=== PATIENT | female | born 1965 | race Caucasian/White ===

== ENCOUNTER 2017-04-27 09:26 | Inpatient (IN) | payer BC, OTHER ==
[2017-04-13 12:05] VITALS: BMI 22.0
--- NOTE | 2017-04-13 12:47 | PAT Medication Instructions ---
Service Date Apr 13, 2017. Current Home Medication List Acetamin/Butalbital/Caffeine (Fioricet), 1-2 TAB PO BID PRN for RN Amphetamine-Dextroamphetamine 30MG (Adderall 30MG), 30 MG PO QAM Hydrocodone/Acetaminophen 5MG/325MG ([place] 5MG/325MG), 1 TABLET PO Q4H PRN for N Magnesium Oxide (Mag-Ox), 400 MG PO NOON Multivitamin (Multivitamin), 1 TAB PO QAM Pregabalin (Lyrica), 100 MG PO HS Varenicline (Chantix), 1 MG PO DIRECTED [Selenium], 1 TAB PO QAM Medication Instructions For Your Scheduled Surgery - Hold the following medications 2 weeks prior to surgery: [Selenium], 1 TAB PO QAM - Hold the following medications the morning of surgery: Magnesium Oxide (Mag-Ox), 400 MG PO NOON Multivitamin (Multivitamin), 1 TAB PO QAM Amphetamine-Dextroamphetamine 30MG (Adderall 30MG), 30 MG PO QAM Varenicline (Chantix), 1 MG PO DIRECTED - Take the following medications the morning of surgery with a sip of water: Hydrocodone/Acetaminophen 5MG/325MG ([place] 5MG/325MG), 1 TABLET PO Q4H PRN (if needed, can be taken up to four hours before surgery) Acetamin/Butalbital/Caffeine (Fioricet), 1-2 TAB PO BID PRN for RN (if needed, can be taken up to four hours before surgery) - Take the following medications as scheduled the night before surgery: Pregabalin (Lyrica), 100 MG PO HS Hydrocodone/Acetaminophen 5MG/325MG ([place] 5MG/325MG), 1 TABLET PO Q4H PRN Acetamin/Butalbital/Caffeine (Fioricet), 1-2 TAB PO BID PRN for RN If you have any questions please call us at [phone] or [phone] or [phone]
[2017-04-13 13:28] LABS: BASO % 0.6 %; BASO ABS # 0.03 K/uL (0-0.2); COMPLETE YES; EOS % 0.8 %; HEMATOCRIT 44.6 % (37-47); IG% 0.2 %; LYMPH % 27.5 %; LYMPH ABS # 1.41 K/uL (1.2-3.4); MEAN CELL VOLUME 86.3 fL (80-100); MEAN CORPUSCULAR HEMOGLOBIN 30.2 pg (25-34); MEAN PLATELET VOLUME 12.4 fL (7.4-10.4); MONO % 9.4 %; NEUT % 61.5 %; PLATELET COUNT 185 K/uL (130-400); RED BLOOD COUNT 5.17 M/uL (4.2-5.4); WHITE BLOOD COUNT 5.12 K/uL (4.8-10.8)
[2017-04-13 13:37] LABS: URINE APPEARANCE CLEAR (CLEAR); URINE BILIRUBIN NEG (NEG); URINE COLOR YELLOW; URINE NITRITE NEG (NEG); URINE PH 6.5 (4.5-7.5); URINE SPECIFIC GRAVITY 1.021 (1.000-1.030); UROBILINOGEN NEG (NEG); ZZUR CULT IF INDIC CLEAN CATCH NO
[2017-04-13 13:49] LABS: MANUAL MICROSCOPIC REQUIRED? NO; REVIEW REQ? NO
--- NOTE | 2017-04-13 13:52 | DIAGNOSTIC IMAGING REPORT ---
CHEST PREADMISSION(PA/LAT) CLINICAL HISTORY: Preoperative chest COMPARISON STUDY: No previous studies for comparison. FINDINGS: The cardiac and mediastinal contours are normal. There is no evidence of focal pulmonary consolidation. There is no evidence of failure. No pleural effusions are visualized.[ There are postsurgical changes of the cervical spine. IMPRESSION: No active disease in the chest. Electronically signed by: Bong Thakur M.D. 04/13/2017 1:50 PM Dictated Date/Time: 04/13/2017 1:50 PM
[2017-04-13 14:00] LABS: CALCIUM 9.2 mg/dl (8.5-10.1); CREATININE 0.76 mg/dl (0.60-1.20); POTASSIUM 4.8 mmol/L (3.5-5.1)
[2017-04-27] VITALS (8 sets, daily range): BP systolic 84–131; BP diastolic 58–83; PULSE 53–70; TEMP 34.7–37; O2SAT 96–100; Ht 175.3 cm; Wt 68.8 kg
[~2017-04-27] VITALS: Ht 175.3 cm; Wt 68.8 kg
[~2017-04-27 09:26] MED LIST: AMPH30TA2 PO; CEFAZOLIN 1000MG IV PUSH 5 ML IV SCH; CHN/1 PO; FRCT/ PO; HYDR-5688 PO; LACTATED RINGER'S 1000ML 1,000 ML IV SCH; MAGN400T6 PO; MULT-506 PO; PREG100C PO; SELENIUM PO
[2017-04-27] MEDS ORDERED: HYDROmorphone INJ 1 MG/ML SYR IV PRN (10:00)
[2017-04-27] MEDS ORDERED: FENTANYL CITRATE INJ 50 MCG/1 ML 2 ML VIAL IV PRN (10:00)
[2017-04-27] MEDS ORDERED: ATROPINE SULFATE 0.1 MG/ML 5ML SYR IV PRN (10:00)
[2017-04-27] MEDS ORDERED: ONDANSETRON INJ 2 MG/ML 2 ML VIAL IV PRN ×2 (10:00→13:00)
[2017-04-27] MEDS ORDERED: EpHEDrine SULFATE INJ 50 MG/ML AMP IV PRN (10:00)
[2017-04-27] MEDS ORDERED: FENTANYL CITRATE INJ 50 MCG/1 ML 2 ML VIAL ONE ×3 (10:38→13:07)
[2017-04-27] MEDS ORDERED: MIDAZOLAM HCL 1 MG/ML 2ML VIAL ONE (10:38)
--- NOTE | 2017-04-27 10:52 | History & Physical Bridge Note ---
H&P Re-Evaluation Bridge Note: I have examined the patient, reviewed the History & Physical and in the interval since the performance of the History & Physical I have noted the following changes of clinical significance: No changes noted
--- NOTE | 2017-04-27 10:52 | History and Physical ---
History & Physical Date Apr 27, 2017. Chief Complaint Back and leg pain History of Present Illness The patient is a 51 year old female with complaints of back and leg pain Past Medical/Surgical History Medical Problems: (1) Cervical stenosis of spinal canal Additional History Hepatic Disease: No Endocrine Disorder: No Kidney Disease: No Hypertension: No Heart Disease: No Bleeding Tendencies: No Infectious Diseases: No Allergies Coded Allergies: BEE STING (Verified Allergy, Severe, ANAPHYLAXIS, 04/27/17) NO KNOWN DRUG ALLERGIES (Verified Allergy, Unknown, NKDA, 04/27/17) Home Medications Scheduled Amphetamine-Dextroamphetamine 30MG (Adderall 30MG), 30 MG PO QAM Magnesium Oxide (Mag-Ox), 400 MG PO NOON Multivitamin (Multivitamin), 1 TAB PO QAM Pregabalin (Lyrica), 100 MG PO HS Varenicline (Chantix), 1 MG PO DIRECTED [Selenium], 1 TAB PO QAM Scheduled PRN Acetamin/Butalbital/Caffeine (Fioricet), 1-2 TAB PO BID PRN for RN Hydrocodone/Acetaminophen 5MG/325MG ([place] 5MG/325MG), 1 TABLET PO Q4H PRN for N Physical Examination Skin: warm/dry, no rash Eyes: normal inspection, EOMI, sclerae normal ENT: normal ENT inspection, pharynx normal Head: normocephalic, atraumatic Neck: supple, no adenopathy, trachea midline Respiratory/Chest: lungs clear, normal breath sounds, no respiratory distress Cardiovascular: regular rate, rhythm, no edema, no murmur Abdomen / GI: normal bowel sounds, non tender Back: normal inspection Extremities: normal inspection, normal range of motion Neurologic/Psych: no motor/sensory deficits, alert, normal reflexes, oriented x 3 Diagnosis Lumbar spinal stenosis with herniated nucleus pulposus Plan of Treatment Lumbar decompression and fusion L5-S1
[2017-04-27] MEDS ORDERED: BUPIVACAINE/EPINEPHRINE 0.5% MPF 1:200,000 30 ML VIAL ONE (11:13)
[2017-04-27] MEDS ORDERED: BACITRACIN 50000 UNIT VIAL ONE (11:14)
[2017-04-27] MEDS ORDERED: HYDROmorphone INJ 2 MG/ML SYR/VIAL ONE ×2 (11:50→12:59)
[2017-04-27] MEDS ORDERED: ONDANSETRON INJ 2 MG/ML 2 ML VIAL ONE ×2 (12:13→13:00)
[2017-04-27] MEDS ORDERED: DEXAMETHASONE SOD INJ 4 MG/ML VIAL ONE (12:13)
[2017-04-27] MEDS ORDERED: PROPOFOL IV EMULSION 10 MG/ML 20 ML VIAL IV ONE (12:13)
[2017-04-27] MEDS ORDERED: LIDOCAINE HCL 2% 2 ML VIAL (20MG/ML) ONE (12:13)
[2017-04-27] MEDS ORDERED: FLOSEAL HEMOSTATIC MATRIX 10ML TOP ONE (12:49)
[2017-04-27] MEDS ORDERED: SODIUM CHLORIDE 0.9% 1000ML 1,000 ML IV SCH (12:57)
[2017-04-27] MEDS ORDERED: NALOXONE HCL 0.4 MG/1 ML VIAL/CARP IV PRN ×2 (13:00)
[2017-04-27] MEDS ORDERED: ACETAMINOPHEN IV 100 ML IV PRN (13:00)
[2017-04-27] MEDS ORDERED: DO NOT ADMINISTER FLU VACCINE PRN ×3 (13:00)
[2017-04-27] MEDS ORDERED: GLYCOPYRROLATE INJ 0.2 MG/ML VIAL ONE (13:00)
[2017-04-27] MEDS ORDERED: METOCLOPRAMIDE HCL INJ 5 MG/ML 2 ML VIAL IV PRN (13:00)
[2017-04-27] MEDS ORDERED: BISACODYL 10 MG SUPP PR PRN (13:00)
[2017-04-27] MEDS ORDERED: PROMETHAZINE HCL INJ 12.5 MG in SODIUM CHLORIDE 0.9% 50ML 50 ML IV PRN (13:00)
[2017-04-27] MEDS ORDERED: LORAZEPAM INJ 0.5 MG in SYRINGE 0.75 ML IV PRN (13:00)
[2017-04-27] MEDS ORDERED: BUTALBITAL/ACETAMIN/CAFFEINE TAB PO PRN (13:00)
[2017-04-27] MEDS ORDERED: PHENYLEPHRINE 100MCG/ML 5ML SYR ONE (13:00)
[2017-04-27] MEDS ORDERED: MAGNESIUM HYDROXIDE SUSP 30 ML UDC PO PRN (13:00)
[2017-04-27] MEDS ORDERED: ALUMINUM/MAGNESIUM SUSP 30 ML UDC PO PRN (13:00)
[2017-04-27] MEDS ORDERED: FAMOTIDINE 20 MG TAB PO PRN (13:00)
[2017-04-27] MEDS ORDERED: hydrOXYzine HCL 25 MG TAB PO PRN (13:00)
[2017-04-27] MEDS ORDERED: ACETAMINOPHEN 500 MG TAB PO PRN (13:00)
[2017-04-27] MEDS ORDERED: NEOSTIGMINE METHYLSULFATE 1 MG/ML 10ML VIAL ONE (13:00)
[2017-04-27] MEDS ORDERED: DO NOT ADMINISTER PNEUMOCOCCAL VACCINE PRN ×2 (13:00)
[2017-04-27] MEDS ORDERED: SOD PHOSPHATE/SOD BIPHOSPHATE ENEMA 132 ML BTL PR PRN (13:00)
--- NOTE | 2017-04-27 13:04 | [facility] Operative Report ---
Operative Report Operative Date Apr 27, 2017. Pre-Operative Diagnosis Lumbar Spinal Stenosis with herniated nucleus pulposus Post-Operative Diagnosis same Procedure(s) Performed #1 lumbar decompression medial facetectomy foraminotomies L5-S1. #2 posterior spinal fusion L5-S1. #3 placement posterior segmental instrumentation L5-S1. #4 interbody fusion L5-S1. #5 placement peek cage 12 x 22 mm L5-S1. #6 placement of locally harvested morcellized autograft posterior gutters. #7 placement of ostial amp bone graft in the interbody space and posterior lateral gutters. Surgeon Dr. Tony Oliver [employer] Consultant Surgeon(s) Edda Montaño PA-C Findings Herniated pulposus spinal stenosis Specimens none per surgeon Description of Procedure Patient was met with preoperatively case discussed all questions addressed. After informed consent was obtained patient was taken operative suite underwent intubation placed in prone position the Russell table top Wilberto frame. All bony prominences well-padded eyes inspected to ensure no external pressure placed upon them. This point lumbar spines prepped and draped nostril fashion. Sharp dissection with the assistance of Bovie cautery was performed onto an exposing the lamina and transverse processes of L5 and sacral alar bilaterally. From a caudal to cephalad fashion complete laminectomy of L5 was performed including medial facet was foraminotomies addressing lateral recess stenosis foraminal disease and herniated was pulposus L5-S1 the right. After complete decompression pedicle screws are placed in L5-S1 levels bilaterally with assistance of fluoroscopy the purposes blake placed. Through a transforaminal port and right a complete discectomy was performed and plate created to subcortical bleeding bone and a 12 x 22 Romano peek cage filled with ostial amp bone graft tapped in position. Brought to then compressed locked and final position bilaterally. Transverse processes of L5 and sacral alar burred to subcortical bleeding bone. Remaining ostial amp local harvested morcellized autograft was placed the posterior gutters. 15 round ESTEBAN drain inserted. Incision was then closed with 1 Vicryl fascia 2-0 Vicryl subcutaneous C 4 Monocryl for final skin closure Steri-Strips sterile dressings placed. Patient we can take PACU stable condition. Please note Edda Ching was present at the entire procedure involved in patient positioning complex portions of the surgery and final skin closure. I attest to the content of the Intraoperative Record and any orders documented therein. Any exceptions are noted below.
[2017-04-27] MEDS ORDERED: KETOROLAC TROMETHAMINE 30 MG/ML VIAL ONE (13:24)
--- NOTE | 2017-04-27 13:24 | DIAGNOSTIC IMAGING REPORT ---
LUMBAR SPINE 2 OR 3 VIEW HISTORY: 51 years-old Female L5-S1 DECOMPRESSION/FUSION status post L5-S1 decompression with fusion COMPARISON: None available TECHNIQUE: 2 views of the lumbar spine were obtained utilizing 15.5 seconds fluoroscopy time FINDINGS: Postoperative changes compatible with posterior decompression with interbody blake and screw fusion and discectomy at L5-S1. Alignment is satisfactory. Patent postsurgical soft tissue swelling and deep tissue air noted. IMPRESSION: Fluoroscopic assistance as above. Please see operative report for further details. The above report was generated using voice recognition software. It may contain grammatical, syntax or spelling errors. Electronically signed by: Ryder Anne M.D. 04/27/2017 1:22 PM Dictated Date/Time: 04/27/2017 1:21 PM
[2017-04-27] MEDS ORDERED: HYDROmorphone HCL 0.5MG/ML 50 ML CASSETTE ONE (13:32)
--- NOTE | 2017-04-27 14:02 | Anesthesiology Progress Note ---
Anesthesia Post Op Note Date & Time Apr 27, 2017 at 14:02 Vital Signs Pain Intensity: 0 Vital Signs Past 12 Hours Date Time Temp Pulse Resp B/P (MAP) Pulse Ox O2 Delivery O2 Flow Rate FiO2 04/27/17 13:57 60 22 100 04/27/17 13:57 60 22 04/27/17 13:56 116/80 04/27/17 13:52 59 15 04/27/17 13:52 60 15 113/80 100 04/27/17 13:47 61 21 110/78 100 04/27/17 13:47 61 21 04/27/17 13:45 61 21 110/78 100 Oxymask 10 04/27/17 13:42 77 21 107/64 95 04/27/17 13:42 67 21 04/27/17 13:37 67 28 109/77 100 04/27/17 13:37 67 28 04/27/17 13:35 66 25 109/77 100 Oxymask 10 04/27/17 13:32 75 14 04/27/17 13:32 75 14 100 04/27/17 13:31 107/70 04/27/17 13:27 72 17 100 04/27/17 13:27 73 17 04/27/17 13:26 113/73 04/27/17 13:25 73 16 04/27/17 13:25 76 20 107/70 100 Oxymask 10 04/27/17 13:25 74 16 100 04/27/17 13:21 109/73 04/27/17 13:20 81 17 100 04/27/17 13:20 81 17 04/27/17 13:17 103/71 04/27/17 13:15 36.2 65 14 103/71 96 Oxymask 10 04/27/17 13:15 79 14 99 04/27/17 13:15 79 14 04/27/17 10:21 36.8 63 18 131/83 100 Room Air Notes Mental Status: alert / awake / arousable, participated in evaluation Pt Amnestic to Procedure: Yes Nausea / Vomiting: adequately controlled Pain: adequately controlled Airway Patency, RR, SpO2: stable & adequate BP & HR: stable & adequate Hydration State: stable & adequate Anesthetic Complications: no major complications apparent
[2017-04-27] MEDS: LACTATED RINGER'S 1000ML 1,000 ML IV SCH ×2 (15:28→20:49)
[2017-04-27] MEDS ORDERED: RXC5 PO (15:53)
--- NOTE | 2017-04-27 15:53 | Discharge Instructions ---
Discharge Instructions Date of Service Apr 27, 2017. Admission Reason for Admission: Spinal Stenosis Discharge Discharge Diagnosis / Problem: lumbar stenosis Discharge Goals Goal(s): Improve function Activity Recommendations Activity Limitations: per Instructions/Follow-up section . Instructions / Follow-Up Instructions / Follow-Up ACTIVITY RECOMMENDATIONS: SELF CARE INSTRUCTIONS AFTER THORACIC/LUMBAR FUSIONS 1. You may walk to your tolerance. It is good exercise for your legs and back. Expect some back and intermittent leg aches and pains. 2. You may perform "counter-top" level activities (make a sandwich, lesly with a project, etc.). 3. No bending or lifting of more than 10 pounds or back twisting of any nature (roll like a log when turning in bed). 4. You may ride in a car for 20-30 minutes at a time. No driving until after your first visit with your doctor. 5. Frequent changes of position and restricting sitting to 30 minutes at a time will help limit the amount of back spasms and stiffness you may experience. 6. You may discontinue the use of ambulatory aids (cane, crutches, etc.) once your strength and confidence allow. 7. You may bulk materials handling plant operator the shower and let water strike your incision when you arrive home at least once daily. Do not take a tub bath, sit in a hot tub or go into a swimming pool until after your first recheck in the office. SPECIAL CARE INSTRUCTIONS: VERY IMPORTANT TO READ AND REVIEW A. Your surgical incision has been closed with a cosmetic suture under the skin that will dissolve in about 6 weeks. In 14 days, you can use a pair of clean scissors and cut the suture that is left outside of the skin at the ends of your incision. 1. The small skin tapes can be removed 7 days after surgery if they have not fallen off by that point. 2. You may keep the wound open to air as much as possible to promote healing after post-op day number 5 unless told otherwise by your doctor. 3. If you think the wound looks like it is becoming infected (redness or worsening drainage) and/or you are experiencing fever, chill or worsening back pain and muscle spasms, contact the office so that we may evaluate you as soon as possible. B. Complications are uncommon, but please contact us if you have any signs or symptoms of: 1. wound infection (fever higher than 102.5 degrees F, redness, separation of wound, drainage, or increasing pain from the incision) 2. blood clots in legs (pain, swelling, redness and warmth in legs) 3. urinary tract infection (fever higher than 102.5 degrees F, burning upon urination or increased frequency of urination) 4. nerve problems (inability to walk on your toes or heels, numbness, loss of bowel or bladder control) 5. any other symptoms that concern you C. Please call the office at if you have any concerns or questions about your operation or recovery. D. No smoking! Smoking drastically decreases the chance of a solid fusion. E. Do not take any anti-inflammatory medications (Indocin, Advil, Motrin, Aspirin, Naprosyn, etc.) as these may inhibit the chance of a solid fusion. Tylenol is okay to take for pain. MANAGING PAIN AFTER SPINAL SURGERY 1. Narcotic medication is intended for short-term use and will be provided for surgical pain. Surgical pain usually lasts for a period of 4-6 weeks. Narcotic medication includes Percocet, Vicodin, Darvocet, Tylenol #3 or Lortab. 2. Longer-term pain is more appropriately treated with non-narcotic medication such as Tylenol ES. 3. Muscle spasm is not appropriately treated with narcotics. Muscle relaxers such as Soma, Flexeril or Skelaxin can be used along with Tylenol ES. 4. Remember that we all live with some "aches and pains". This is not unusual or uncommon after an injury or as we get older. a. Back pain is expected and may include muscle spasms for 4 to 6 weeks after surgery. The pain should gradually improve. If the pain worsens for no apparent reason, please contact the office. b. Intermittent leg pain may also be experienced and should not be concerned about unless it worsens for no apparent reason. If so, please contact the office. 5. We will provide appropriate medication within the normal guidelines of their prescribed use. We will also be very cautious and aware of potential abuse and extended duration of patients' medication needs. a. Pain medications are for your comfort and to assist with sleep and rest so that the tissue can heal. They are not provided in order to return to normal activity and should not be used through the day. To do so or worsening pain at night can result from ongoing tissue damage and development of tolerance to the prescribed medicine. 6. Please allow 2-3 days to process refills. Prescriptions will not be mailed but must be picked up at the office. FOLLOW UP VISIT: Keep your scheduled follow-up appointment. Any questions, please call the office at . Current Hospital Diet Patient's current hospital diet: Regular Diet Discharge Diet Recommended Diet: Regular Diet Procedures Procedures Performed: #1 lumbar decompression medial facetectomy foraminotomies L5-S1. #2 posterior spinal fusion L5-S1. #3 placement posterior segmental instrumentation L5-S1. #4 interbody fusion L5-S1. #5 placement peek cage 12 x 22 mm L5-S1. #6 placement of locally harvested morcellized autograft posterior gutters. #7 placement of ostial amp bone graft in the interbody space and posterior lateral gutters. Pending Studies Studies pending at discharge: no Medical Emergencies . Who to Call and When: Medical Emergencies: If at any time you feel your situation is an emergency, please call 911 immediately. . Non-Emergent Contact Non-Emergency issues call your: Primary Care Provider . "Provider Documentation" section prepared by Tony Oliver. . VTE Core Measure Inpt VTE Proph given/why not?: Yina Son, VARUN's
[2017-04-27] MEDS: HYDROmorphone HCL 0.5MG/ML 50 ML CASSETTE IV PRN ×2 (16:00→23:04)
[2017-04-27] MEDS: CHANTIX~ORDER AWAITING ACTION SCH (16:00)
[2017-04-27] MEDS: CEFAZOLIN IV 1,000 MG in SYRINGE 0 ML IV SCH (20:08)
[2017-04-27] MEDS: DEXAMETHASONE INJ 6 MG in SYRINGE 0 ML IV SCH (20:08)
[2017-04-27] MEDS: LORAZEPAM 0.5 MG TAB PO PRN (20:52)
[2017-04-27] MEDS: DOCUSATE SODIUM/SENNA 50/8.6MG TAB PO SCH (21:24)
[2017-04-27] MEDS: PREGABALIN 100 MG CAP PO SCH (21:24)
[2017-04-28 03:14] VITALS: BP 94/56; PULSE 76; TEMP 37.1; O2SAT 98
[2017-04-28] MEDS: CEFAZOLIN IV 1,000 MG in SYRINGE 0 ML IV SCH (03:52)
[2017-04-28] MEDS: LACTATED RINGER'S 1000ML 1,000 ML IV SCH (03:52)
[2017-04-28] MEDS: DEXAMETHASONE INJ 6 MG in SYRINGE 0 ML IV SCH ×2 (03:53→12:45)
[2017-04-28] MEDS ORDERED: HYDROmorphone INJ 1 MG/ML SYR IV PRN (06:00)
[2017-04-28] MEDS ORDERED: DC PCA SCH (06:00)
[2017-04-28] MEDS ORDERED: OXYCODONE HCL IR 5 MG TAB (IMMEDIATE RELEASE) PO PRN (06:00)
[2017-04-28] MEDS ORDERED: HYDROmorphone INJ 0.5 MG/0.5 ML SYR IV PRN (06:00)
[2017-04-28 07:01] LABS: BASO % 0.1 %; BASO ABS # 0.01 K/uL (0-0.2); COMPLETE YES; HEMATOCRIT 35.8 % (37-47); IG% 0.2 %; LYMPH % 2.4 %; MEAN CELL VOLUME 85.2 fL (80-100); MEAN CORPUSCULAR HEMOGLOBIN 29.3 pg (25-34); MEAN CORPUSCULAR HGB CONC 34.4 g/dl (32-36); MEAN PLATELET VOLUME 12.1 fL (7.4-10.4); MONO % 1.6 %; NEUT % 95.7 %; PLATELET COUNT 144 K/uL (130-400)
[2017-04-28 07:09] VITALS: BP 113/71; PULSE 75; TEMP 37.2; O2SAT 97
[2017-04-28 07:32] LABS: BUN/CREATININE RATIO 9.8 (10-20); CALCIUM 8.8 mg/dl (8.5-10.1); CREATININE 0.97 mg/dl (0.60-1.20); POTASSIUM 4.3 mmol/L (3.5-5.1)
[2017-04-28] MEDS: AMPHETAMINE ASP/SULF/DEXTRAMPH 10 MG TAB PO SCH (08:25)
[2017-04-28] MEDS: MAGNESIUM OXIDE 400 MG TAB PO SCH (08:26)
[2017-04-28] MEDS ORDERED: NURSING DECISION MEDICATION ORDER SCH (09:15)
[2017-04-28] MEDS: CHANTIX~ORDER AWAITING ACTION SCH ×2 (09:54)
--- NOTE | 2017-04-28 10:36 | Progress Note ---
Progress Note Date of Service Apr 28, 2017. Progress Note Patient is postop day #1. Back pain is controlled. Leg pain improved. Vital signs stable. Exam she is excellent strength testing. Assessment status post lumbar depression fusion replant this time initiate physical therapy advance her bowel regiment to speak home tomorrow.
[2017-04-28] MEDS ORDERED: KETOROLAC TROMETHAMINE 30 MG/ML VIAL IV PRN (10:45)
[2017-04-28 15:02] VITALS: BP 119/78; PULSE 81; TEMP 36.8; O2SAT 98
[2017-04-28] MEDS: PREGABALIN 100 MG CAP PO SCH (21:09)
[2017-04-28] MEDS: LORAZEPAM 0.5 MG TAB PO PRN (21:09)
[2017-04-28] MEDS: DOCUSATE SODIUM/SENNA 50/8.6MG TAB PO SCH (21:56)
[2017-04-28 22:51] VITALS: BP 99/62; PULSE 76; TEMP 36.8; O2SAT 98
[2017-04-29] MEDS: POLYETHYLENE (MIRALAX) 17 GM PACK PO SCH ×2 (05:38→12:47)
[2017-04-29 07:20] VITALS: BP 111/63; PULSE 80; TEMP 36.7; O2SAT 98
[2017-04-29] MEDS: MAGNESIUM OXIDE 400 MG TAB PO SCH (08:13)
[2017-04-29] MEDS ORDERED: VARENICLINE (CHANTIX) 1 MG TAB PO SCH (09:00)
[2017-04-29] MEDS: AMPHETAMINE ASP/SULF/DEXTRAMPH 10 MG TAB PO SCH (09:41)
[2017-04-29 11:36] VITALS: BP 111/63; PULSE 80; TEMP 36.7; O2SAT 98
--- NOTE | 2017-04-29 11:43 | Discharge Summary ---
Orthopedic Discharge Summary Admission Date/Reason Apr 27, 2017 at 11:00 Spinal Stenosis. Discharge Date/Disposition Apr 29, 2017 Home Diagnosis Principal Diagnosis: Lumbar spinal stenosis Admission Physical Exam As per Admitting History & Physical. Hospital Course Patient underwent lumbar decompression fusion tolerated this well as taken to the orthopedic floor postoperatively. Postoperative day 1 she was up and amatory progressed to postoperative day #2. ESTEBAN drain decreased properly. Pain well controlled. Subsequently discharged home. Discharge orders and instructions found the chart for further review. Discharge Instructions Please refer to the electronic Patient Visit Report (Discharge Instructions) for additional information.
== END 2017-04-29 13:29 | disposition home or self-care (01) | DRG 455 ==
LOC: C.ACU 09:26 → C.MSN 11:00 → ENRESERV 13:59
PROVIDERS: ADMIT Orthopaedic Surgery Orthopaedic Surgery of the Spine; ATTEND Orthopaedic Surgery Orthopaedic Surgery of the Spine
PROC: 0ST40ZZ Resection of Lumbosacral Disc, Open Approach (ICD-10-PCS; principal; 2017-04-27 11:45)
PROC: 0SG3071 Fusion of Lumbosacral Joint with Autologous Tissue Substitute, Posterior Approach, Posterior Column, Open Approach (ICD-10-PCS; principal; 2017-04-27 11:45)
PROC: 0SG30AJ Fusion of Lumbosacral Joint with Interbody Fusion Device, Posterior Approach, Anterior Column, Open Approach (ICD-10-PCS; principal; 2017-04-27 11:45)
DX: M48.061 Spinal stenosis, lumbar region without neurogenic claudication (principal); M51.26 Other intervertebral disc displacement, lumbar region; R21 Rash and other nonspecific skin eruption; G62.9 Polyneuropathy, unspecified; M79.7 Fibromyalgia; M19.90 Unspecified osteoarthritis, unspecified site; F17.210 Nicotine dependence, cigarettes, uncomplicated; Z98.1 Arthrodesis status; Z79.891 Long term (current) use of opiate analgesic; Z79.899 Other long term (current) drug therapy

== ENCOUNTER 2022-03-10 10:45 | Inpatient (IN) ==
--- NOTE | 2022-02-18 14:43 | PAT Medication Instructions ---
Medication Instructions Date of Service February 18, 2022 Home Medications ferrous sulfate 325 mg (65 mg iron) tablet 325 mg PO QPM gabapentin 300 mg tablet 600 mg PO HS magnesium 500 mg tablet 15 mg PO QAM multivitamin 1 tab PO QAM sertraline 100 mg tablet (Zoloft) 100 mg PO HS DO NOT take the morning of surgery magnesium 500 mg tablet 15 mg PO QAM multivitamin 1 tab PO QAM Take evening before surgery ferrous sulfate 325 mg (65 mg iron) tablet 325 mg PO QPM gabapentin 300 mg tablet 600 mg PO HS sertraline 100 mg tablet (Zoloft) 100 mg PO HS Other Notes If you have any questions please call us at [phone] or [phone] or [phone] or [phone]
--- NOTE | 2022-02-24 15:27 | Anesthesiology Consultation ---
Date of Service February 24, 2022 Assessment & Plan (1) Encounter for pre-operative examination: - COVID screening: Per assessment on 02/24: No known COVID-19 positive contacts or current COVID-19 related symptoms. Travel screen negative. Patient vaccinated. At surgeon discretion if preop Covid testing being done. - S/P L5-S1 decompression/fusion (04/27/17): Grade 2 view, MAC#3, ETT 7.0 at [facility]. No issues noted per post-op anesthesia progress note. Chart Review Chart Review: Acceptable Risk for Surgery (pending evaluation AM DOS) and Patient seen in Pre Admission Testing Teaching & Discussion Pre-Anesthesia Teaching/Discussion Notes: Instructed NPO after midnight before surgery,except medications with 15 cc of water. Medication instructions provided according to the PAT guidelines. History Surgery Operation Date: 03/10/22 11:05 Proposed Procedures p L4-L5 Decompression and Fusion, L5-S1 Hardware Removal, Spinal Cord Monitoring - Tony Oliver, Height/Weight Height: 5 ft 8 in Weight: 71.4 kg Allergies Allergy/AdvReac Type Severity Reaction Status Date / Time bee venom protein (honey bee) Allergy Severe ANAPHYLAXIS Verified 02/18/22 12:31 No Known Drug Allergies Allergy Unknown NKDA Verified 02/18/22 12:31 Medications Home Medications Medication Instructions Recorded Confirmed Last Taken ferrous sulfate 325 mg (65 mg 325 mg PO QPM 02/18/22 02/18/22 Unknown iron) tablet gabapentin 300 mg tablet 600 mg PO HS 02/18/22 02/18/22 Unknown magnesium 500 mg tablet 15 mg PO QAM 02/18/22 02/18/22 Unknown multivitamin 1 tab PO QAM 02/18/22 02/18/22 Unknown sertraline 100 mg tablet (Zoloft) 100 mg PO HS 02/18/22 02/18/22 Unknown Past Medical History Medical History History of upper gastrointestinal bleeding 7+ years ago r/t bleeding ulcer Migraine hx Exercise / Class Metabolic Activity II 4-5 Yardwork/Stairs/Walk up hill (one FS (no CP, no SOB)) Past Surgical History Surgical History History of back surgery cervical and lumbar- fusion L5-S1 decompression/fusion (04/27/17): Grade 2 view, MAC#3, ETT 7.0 at [facility]. No issues noted per post-op anesthesia progress note. History of bunionectomy b/l History of esophagogastroduodenoscopy (EGD) Hx of cholecystectomy Hx of tubal ligation Nausea and vomiting after administration of anesthetic agent S/P colonoscopy Past Anesthesia History No Family Hx of Anesthesia Complications and Other ("Slow to wake" > no known hx of reintubation) History of PONV History of PONV (+ nausea) Social History Smoking Status: Former smoker Do You Dip or Chew Tobacco: No Smoking End Date: Quit 4 yrs ago Hx Alcohol Use: No Hx Substance Use: Yes substance use type: marijuana (Daily (night) for pain control (edibles)- advised) Review of Systems Patient denies chest pain, shortness of breath, dyspnea on exertion, fever, chills, cough, wheezing, palpitations. Physical Exam Vital Signs VITALS BP 135/84 P 62 TEMP 99.1 SP02 98%RA RESP 16 PHYSICAL Full cervical extension range of motion. Full TMJ range of motion. TMD 3 finger breaths Mallampati Score 3 Dentition: intact Lungs: clear throughout to auscultation Cardiac: regular rate and rhythm, no murmurs noted Spine: normal Carotid arteries: negative bruit Extremities: no edema Lab Results Anesthesia Preop Results Results Anesthesia Widget: WBC 5.26 K/ul (4.8-10.8) 02/24/22 Hgb 13.3 g/dl (12.0-16.0) 02/24/22 Hct 41.0 % (34.1-44.9) 02/24/22 Plt 180 K/uL (130-400) 02/24/22 Na 139 mmol/L (136-145) 02/24/22 K 4.3 mmol/L (3.5-5.1) 02/24/22 Cl 103 mmol/L (98-107) 02/24/22 CO2 28 mmol/L (21-32) 02/24/22 BUN 12 mg/dl (6-23) 02/24/22 Creat 0.78 mg/dl (0.6-1.2) 02/24/22 Glucose Level 95 mg/dl (70-99(Fasting)) 02/24/22 PT 10.6 Seconds (9.0-12.0) 02/24/22 PTT 26.5 Seconds (21.0-31.0) 02/24/22 INR 1.0 (0.9-1.1) 02/24/22 Urine Color Yellow 02/24/22 Urine Appearance Clear (Clear) 02/24/22 Urine pH 6.0 (4.5-7.5) 02/24/22 Urine Specific [place] 1.022 (1.000-1.030) 02/24/22 Urine Protein Negative (Negative) 02/24/22 Urine Glucose (UA) Negative (Negative) 02/24/22 Urine Ketones Negative (Negative) 02/24/22 Urine Blood Negative (Negative) 02/24/22 Urine Nitrite Negative (Negative) 02/24/22 Urine Bilirubin Negative (Negative) 02/24/22 Urine Urobilinogen Negative (Negative) 02/24/22 Urine Leukocyte Esterase Negative (Negative) 02/24/22 Blood Type O Positive 02/24/22 Antibody Screen NEGATIVE 02/24/22 Testing Electrocardiogram Date: 02/24/22 Normal sinus rhythm at 60 bpm. T wave abnormality, consider anterior ischemia. Nonspecific ST abnormality. Per visual assessment, NS TWA in anterior leads. Reviewed with Dr. Pate- no further cardiac testing and/or evaluation prior to surgery from his perspective. Chest X-Ray Date: 02/24/22 FINDINGS: Patient is mildly rotated. Postoperative findings within the spine are incidentally noted. Lung volumes are normal. Lungs are clear. There is no pneumothorax or pleural effusion. Cardiac size is normal. Mediastinal contours are normal. There is no evidence for pulmonary edema. IMPRESSION: No acute cardiopulmonary findings. COVID-19 Risk Screen Screening Information COVID-19 Screen Date: 02/24/22 Exposure 21 Days Family/Household +COVID Last 21 Days: No Exposure 10 Days Any COVID Exposure Last 10 Days: No Symptoms Last 10 Days Experienced COVID Sx Last 10 Days: No + COVID 0-90 Days COVID + in Last 0-90 Days: No
[~2022-03-10 10:45] MED LIST changes: +ACETAMINOPHEN 500 MG TAB PO SCH; -AMPH30TA2 PO; -CEFAZOLIN 1000MG IV PUSH 5 ML IV SCH; -CHN/1 PO; +CeleBREX 200 MG CAP PO SCH; -FRCT/ PO; +GABAPENTIN 600 MG DOSE PO SCH; -HYDR-5688 PO; -LACTATED RINGER'S 1000ML 1,000 ML IV SCH; +LR 15ML/HR IV SCH; -MAGN400T6 PO; -MULT-506 PO; -PREG100C PO; -SELENIUM PO
[2022-03-10] MEDS ORDERED: PROPOFOL IV EMULSION 10 MG/ML 20 ML VIAL IV ONE (11:35)
[2022-03-10] MEDS ORDERED: fentaNYL citrate 100 MCG/2 ML VIAL ONE (11:35)
[2022-03-10] MEDS ORDERED: ROCURONIUM BROMIDE 10 MG/ML 5 ML VIAL IV ONE (11:35)
[2022-03-10] MEDS ORDERED: MIDAZOLAM HCL 1 MG/ML 2ML VIAL ONE (11:35)
[2022-03-10] MEDS ORDERED: LIDOCAINE 2% MPF LOCAL 5 ML VIAL INFIL ONE (11:35)
[2022-03-10] MEDS ORDERED: ePHEDrine sulfate 50 MG/ML AMP IV PRN (12:03)
[2022-03-10] MEDS ORDERED: ONDANSETRON INJ 2 MG/ML 2 ML VIAL IV PRN ×2 (12:03→16:43)
[2022-03-10] MEDS ORDERED: ATROPINE SULFATE 0.1 MG/ML 10ML SYR IV PRN (12:03)
--- NOTE | 2022-03-10 12:09 | History & Physical Bridge Note ---
Date of Service March 10, 2022 History & Physical Bridge Note I have examined the patient, reviewed the History & Physical and in the interval since the performance of the History & Physical I have noted the following changes of clinical significance: no changes noted
--- NOTE | 2022-03-10 12:09 | History & Physical Report ---
Date of Service March 10, 2022 Assessment & Plan (1) Lumbar stenosis with neurogenic claudication: Plan: L4-5 decompression and fusion, L5-S1 hardware removal History of Present Illness Chief Complaint: Back and right leg pain Primary Care Provider: NO PCP This is a 52-year-old female well-known to me the presents with chronic chest and back and leg pain after failing course of nonoperative care she is here for surgical invention. Allergies Allergy/AdvReac Type Severity Reaction Status Date / Time bee venom protein (honey bee) Allergy Severe ANAPHYLAXIS Verified 03/10/22 11:02 No Known Drug Allergies Allergy Unknown NKDA Verified 03/10/22 11:02 Home Medications Medication Instructions Recorded Confirmed Type ferrous sulfate 325 mg (65 mg 325 mg PO QPM 02/18/22 03/10/22 History iron) tablet gabapentin 300 mg tablet 600 mg PO HS 02/18/22 03/10/22 History magnesium 500 mg tablet 15 mg PO QAM 02/18/22 03/10/22 History multivitamin 1 tab PO QAM 02/18/22 03/10/22 History sertraline 100 mg tablet (Zoloft) 100 mg PO HS 02/18/22 03/10/22 History Past Med/Surg History Medical History History of upper gastrointestinal bleeding 7+ years ago r/t bleeding ulcer Migraine hx Surgical History History of back surgery cervical and lumbar- fusion L5-S1 decompression/fusion (04/27/17): Grade 2 view, MAC#3, ETT 7.0 at [facility]. No issues noted per post-op anesthesia progress note. History of bunionectomy b/l History of esophagogastroduodenoscopy (EGD) Hx of cholecystectomy Hx of tubal ligation Nausea and vomiting after administration of anesthetic agent S/P colonoscopy Social History Smoking Status: Former smoker Smoking End Date: Quit 4 yrs ago; Second Hand Exposure: No; Do You Dip or Chew Tobacco: No; Tobacco Cessation Education Requested by Patient: No Hx Alcohol Use: No Hx Substance Use: Yes (occasionally uses edibles- ADVISED) Preferred Language: Kiswahili Communication Ability: Effective Branch Sales Manager Required: No Beliefs That Will Affect Care: None Current Living Situation: Spouse Other Information That Helps Us Care for You: No Feels Safe at Home: Yes Safety Concerns: Feels Safe At This Time Assistive Devices: Cane Physical Exam Physical Exam: Patient is alert and oriented Heart regular rate and rhythm Lungs clear Results & Data Results & Data ([facility]) Vital Signs (Past 12 Hours) Vital Signs Temp Pulse Resp BP Pulse Ox O2 Del Method 03/10/22 11:04 36.8 C 62 22 133/78 98 Room Air
[2022-03-10] MEDS ORDERED: ceFAZolin 330 MG/ML 1 GM VIAL ONE (12:31)
[2022-03-10] MEDS ORDERED: BUPIVACAINE/EPINEPHRINE 0.25% 1:200,000 30 ML VIAL ONE (12:31)
[2022-03-10] MEDS: ceFAZolin 1000MG 1,000 MG/7.5 ML SYR IV SCH ×3 (12:41→19:59)
[2022-03-10] MEDS ORDERED: DEXAMETHASONE SOD INJ 4 MG/ML VIAL ONE (13:01)
[2022-03-10] MEDS ORDERED: FLOSEAL HEMOSTATIC MATRIX 10ML TOP ONE (13:34)
[2022-03-10] MEDS ORDERED: GLYCOPYRROLATE 0.2 MG/ML VIAL ONE (14:16)
[2022-03-10] MEDS ORDERED: NEOSTIGMINE METHYLSULFATE 1 MG/ML 10ML VIAL ONE (14:16)
--- NOTE | 2022-03-10 14:24 | Operative Report ---
Post Operative Report Pre & Post Diagnosis Operation Date: 03/10/22 12:25 Pre-Op Diagnosis: Lumbar stenosis with neurogenic claudication Post-Op Diagnosis: Lumbar stenosis with neurogenic claudication I identified the patient and participated in the time-out.: Yes Procedure Operation Date: 03/10/22 12:25 Actual Procedures #1 removal of posterior instrumentation L5-S1. #2 exploration of fusion L5-S1. #3 lumbar decompression with bilateral facetectomies and foraminotomies L3-L4 L4-5 per #4 posterior spinal fusion L4-5 per #5 placement posterior instru mentation L4-S1. #6 interbody fusion L4-L5. #7 patient with Spira 13 x 26 mm cage at L4-5. #8 placement locally harvested morselized autograft in the posterior gutters. #9 placement of I factor combined with V toss in the interbody space and posterior lateral gutters. Surgeon Tony Oliver, Satellite Manager Edda Ching Estimated Blood Loss 100 Findings Consistent with Post-Op Diagnosis Specimens None Indications This is a 48-year-old female who presents with bulge diagnosis after failing course of nonoperative care she is here for the above-mentioned procedure. Description of Procedure Patient was met with identified informed consent obtained. Patient was then taken to the operative suite underwent patient placed in a prone position the [place] table top Wilberto frame. All bony prominences well-padded eyes inspected to ensure no external pressure placed upon the. This point the lumbar spine was prepped and draped in normal sterile fashion. Sharp dissection with the assistance of Bovie cautery was performed down to and exposing the lamina transverse processes of L4 and instrumentation L5 and S1 levels bilaterally. I then proceeded to move the hardware bilaterally explore the fusion mass noting it to be mature and intact. Then formed a complete laminectomy of L4 partial laminectomy of L3 including bilateral medial facetectomies and foraminotomies addressing severe spinal stenosis and obvious facet hypertrophy and instability at L4-5. After complete decompression pedicle screws were placed at L4-L5 and S1 levels bilaterally with assistance of fluoroscopy and appropriate sized blake placed. By way of a transit foraminal approach and right complete discectomy of L4-L5 was performed endplates curetted to subcortical bleeding bone and a 13 x 26 mm spiral cage with I factor tapped in position. The rods were then compressed locked into final position bilaterally. The transverse processes of L4-L5 burred to subcortical bleeding bone. I factor combined with V toss and locally harvested morselized autograft placed in the posterior gutters. 15 round ESTEBAN drain inserted. The incision was then closed with 1 Vicryl to fascia 2-0 Vicryl subcutaneously and 4 Monocryl for fascial closure. Steri-Strip sterile dressings placed. Patient waken taken PACU stable condition. Please note spinal cord monitoring was utilized at the procedure no changes noted. Lastly Edda Ching was present at the entire procedure involved the patient positioning complex portions of the surgery and final skin closure. I attest to the content of the Intraoperative Record and any orders documented therein. Any exceptions are noted below.
--- NOTE | 2022-03-10 14:54 | Fluoroscopy Report ---
FL lumbar spine 2-3V CLINICAL HISTORY: L4-L5 DECOMPRESSION AND FUSION L5-S1 HW REMOVAL TECHNIQUE: 2 views were obtained with the C-arm in the OR with the above procedure. Total fluoroscopy time was 12.8 seconds. Total skin dose was 10.9 mGy. Comparison: None available at the time of this dictation. FINDINGS/IMPRESSION: Intraoperative images were obtained of L4-S1 discectomy and fusion and removal o f L5-S1 hardware. Please correlate with intraoperative fluoroscopy and operative report. ACT 112: Negative or not required by law. Electronically signed by: Sam Agee M.D. 03/10/2022 2:52 PM
[2022-03-10] MEDS: fentaNYL citrate 100 MCG/2 ML VIAL IV PRN ×4 (14:55→15:10)
[2022-03-10] MEDS ORDERED: HYDROmorphone INJ 1 MG/ML SYRINGE ONE (15:11)
[2022-03-10] MEDS: HYDROmorphone INJ 1 MG/ML SYRINGE IV PRN ×9 (15:18→19:59)
[2022-03-10] MEDS ORDERED: SOD PHOSPHATE/SOD BIPHOSPHATE ENEMA 132 ML BTL PR PRN (16:43)
[2022-03-10] MEDS ORDERED: ACETAMINOPHEN 500 MG TAB PO PRN (16:43)
[2022-03-10] MEDS ORDERED: ACETAMINOPHEN 1,000 MG/100 ML VIAL IV PRN (16:43)
[2022-03-10] MEDS ORDERED: traMADol HCL 50 MG TABLET PO PRN (16:43)
[2022-03-10] MEDS ORDERED: oxyCODONE HCL IR 5 MG TAB (IMMEDIATE RELEASE) PO PRN (16:43)
[2022-03-10] MEDS ORDERED: HYDROmorphone INJ 0.5 MG/0.5 ML SYR IV PRN (16:43)
[2022-03-10] MEDS ORDERED: hydrOXYzine HCl 25 MG TAB PO PRN (16:43)
[2022-03-10] MEDS ORDERED: ALUMINUM/MAGNESIUM SUSP 30 ML UDC PO PRN (16:43)
[2022-03-10] MEDS ORDERED: bisacodyL 10 MG SUPP PR PRN (16:43)
[2022-03-10] MEDS ORDERED: FAMOTIDINE 20 MG TAB PO PRN (16:43)
[2022-03-10] MEDS ORDERED: METOCLOPRAMIDE HCL INJ 5 MG/ML 2 ML VIAL IV PRN (16:43)
[2022-03-10] MEDS ORDERED: ONDANSETRON 4 MG OD TAB PO PRN (16:43)
[2022-03-10] MEDS ORDERED: PROMETHAZINE HCL 12.5 MG in SODIUM CHLORIDE 0.9% 50 ML IV PRN (16:43)
[2022-03-10] MEDS ORDERED: NALOXONE HCL 0.4 MG/1 ML VIAL/CARP IV PRN (16:43)
[2022-03-10] MEDS ORDERED: LORazepam 0.5 MG in SYRINGE 0.25 ML IV PRN (16:43)
[2022-03-10] MEDS ORDERED: LORazepam 0.5 MG TAB PO PRN (16:43)
[2022-03-10] MEDS ORDERED: diphenhydrAMINE Capsule 25 MG CAP PO PRN (16:43)
[2022-03-10] MEDS ORDERED: MAGNESIUM HYDROXIDE SUSP 30 ML UDC PO PRN (16:43)
--- NOTE | 2022-03-10 17:08 | Anesthesiology Progress Note ---
Date of Service March 10, 2022 Anesthesia Post Procedure Vital Signs Vital Signs: Temp Pulse Resp BP Pulse Ox O2 Del Method O2 Flow Rate 03/10/22 16:40 36.8 C 87 16 101/69 97 Room Air 03/10/22 16:15 36.7 C 75 18 109/73 96 Room Air 03/10/22 16:25 36.7 C 76 23 106/72 96 Room Air 03/10/22 16:05 36.7 C 77 13 107/64 99 Room Air 03/10/22 15:45 80 13 114/77 99 Room Air 03/10/22 15:55 77 17 97/60 L 98 Room Air 03/10/22 15:35 78 18 107/77 100 Room Air 03/10/22 15:25 81 20 99/61 L 95 Room Air 03/10/22 15:15 75 15 102/60 97 Room Air 03/10/22 14:55 69 13 101/78 99 Oxymask 3 03/10/22 15:05 79 17 115/65 97 Oxymask 3 03/10/22 14:45 72 21 112/64 100 Oxymask 4 03/10/22 14:38 36.3 C L 82 21 120/75 100 Oxymask 5 03/10/22 11:04 36.8 C 62 22 133/78 98 Room Air Pain Intensity Right Medial Back: Pain Intensity: 2 Transfer of Care Handoff Completed per policy Notes Mental Status: alert / awake / arousable Patient Amnestic to Procedure: Yes Nausea / Vomiting: adequately controlled Pain: adequately controlled Airway Patency, RR, SpO2: stable & adequate BP & HR: stable & adequate Hydration State: stable & adequate Anesthetic Complications: no major complications apparent and Pt Satisfied with anesthetic care
[2022-03-10] MEDS: LACTATED RINGER'S 1,000 ML IV SCH (17:22)
--- NOTE | 2022-03-10 17:45 | Consultation ---
Date of Consultation March 10, 2022 Assessment & Plan (1) Lumbar stenosis with neurogenic claudication: S/P L4-L5 Decompression/Fusion with removal of hardware L5-S1, POD # [address] Oliver EBL 100ml; ESTEBAN drain 135ml tolerated procedure well pain/wound management per ortho activity and therapy as directed by ortho encourage incentive spirometry, wean oxygen when able monitor hgb, pre op 13.3 Depression with anxiety continue zoloft mood stable Hx of medical marijuana use uses edibles does not have with her Migraine hx continue mag supplement no current ALCARAZ DVT ppx: SCDS per primary FULL CODE PCP: Dr. Leticia Montez MD, [place], part of [facility] [place] Dispo: per primary Pt was seen and examined in collaboration with Dr. Rios, please see addendum Thank you for this consultation. We will follow the patient with you during their hospital stay. You can reach a member of the [facility] Hospitalist Team 17/01 via hospitalist role on tiger text. Supervising Physician Co-Signing Physician Notes Patient is a 56-year-old female with mood disorder, migraine but otherwise no significant past medical history was consulted for postop medical management. Patient underwent lumbar surgery for lumbar stenosis with neurogenic claudication. Patient is doing well postoperatively. Pain at surgical site is controlled. She denies any chest pain, shortness of breath, dizziness, nausea, abdominal pain. On exam patient is moderately built and nourished, no apparent distress, normocephalic/atraumatic, lungs are clear to auscultation, S1-S2, no murmur, no pedal edema, abdomen soft, nontender, normal bowel sounds, alert, awake, oriented, grossly no focal deficits, back: Reveals that in dressing,+drain. Postoperative state. Monitor for postop anemia. Bowel regimen to prevent constipation. Incentive spirometry. Pain control, DVT prophylaxis and wound care as per primary team. Continue home medications for mood disorder. I personally reviewed the record. Patient is interviewed and examined at bedside. Patient's care is coordinated with Sendy Graves PA-C. Please refer to the documentation above for details of patient's presentation and for discussion of other issues. History of Present Illness Requesting Physician: Dr. Oliver Reason for Consultation: Postop medical management Attending Physician: Tony Oliver, DO History of Present Illness This is a 56-year-old female who has significant past medical history of depression with anxiety and hx of migraines who presents for elective lumbar procedure by Dr. Oliver. Patient underwent lumbar decompression fusion L4-S1 with removal of hardware of L5 and S1. She tolerated procedure well. She complains of incisional tenderness but denies any radicular pain, numbness or tingling. She feels well postoperatively. She denies fever, chills, sweats, lightheadedness, dizziness, chest pain, shortness of breath cough, nausea, vomiting, abdominal pain. She denies any change in bowel or urinary habits. She does have a Stovall catheter currently in place. Pt has hx of depression controlled on zoloft. She denies any recent migraines. Allergies Allergy/AdvReac Type Severity Reaction Status Date / Time bee venom protein (honey bee) Allergy Severe ANAPHYLAXIS Verified 03/10/22 11:02 No Known Drug Allergies Allergy Unknown NKDA Verified 03/10/22 11:02 Home Medications Medication Instructions Recorded Confirmed Type ferrous sulfate 325 mg (65 mg 325 mg PO QPM 02/18/22 03/10/22 History iron) tablet gabapentin 300 mg tablet 600 mg PO HS 02/18/22 03/10/22 History magnesium 500 mg tablet 15 mg PO QAM 02/18/22 03/10/22 History multivitamin 1 tab PO QAM 02/18/22 03/10/22 History sertraline 100 mg tablet (Zoloft) 100 mg PO HS 02/18/22 03/10/22 History Patient History Medical History History of upper gastrointestinal bleeding 7+ years ago r/t bleeding ulcer Migraine hx Surgical History History of back surgery cervical and lumbar- fusion L5-S1 decompression/fusion (04/27/17): Grade 2 view, MAC#3, ETT 7.0 at [facility]. No issues noted per post-op anesthesia progress note. History of bunionectomy b/l History of esophagogastroduodenoscopy (EGD) Hx of cholecystectomy Hx of tubal ligation Nausea and vomiting after administration of anesthetic agent S/P colonoscopy Family History Other Breast cancer Lung cancer Social History (Updated 03/10/22 @ 18:00 by Sendy Graves PA-C) Smoking Status: Former smoker Years Smoked: 40; Smoking End Date: Quit 3 yrs ago; Second Hand Exposure: No; Do You Dip or Chew Tobacco: No; Tobacco Cessation Education Requested by Patient: No Hx Alcohol Use: Yes Alcohol Intake Frequency: Monthly or Less Hx Substance Use: Yes (occasionally uses edibles- ADVISED) Prescribed Medications: Marijuana Preferred Language: Syriac Communication Ability: Effective Analytical Clerk Required: No Beliefs That Will Affect Care: None Current Living Situation: Spouse Other Information That Helps Us Care for You: No Feels Safe at Home: Yes Safety Concerns: Feels Safe At This Time Assistive Devices: Cane Review of Systems Review of Systems: All systems reviewed & are unremarkable except as noted in HPI & below Physical Exam Physical Exam: Constitutional: WD/WN, vitals as above, NAD, sitting up in bed, pleasant, conversing easily Head: Normocephalic, Atraumatic Eyes: PERRL, conjunctivae normal, anicteric sclerae ENMT: external ear and nose normal, oropharynx normal Neck: trachea midline, no thyromegaly normal visual inspection Respiratory: normal respiratory effort, lungs clear to auscultation, no wheeze, rales, rhonchi. Normal insp/exp effort, no accessory muscle use Cardiovascular: RRR, no murmur, no edema Vessels: no JVD or carotid bruit Chest: normal inspection of chest Abdomen: normal bowel sounds, soft, nontender, no hepatosplenomegaly Musculoskeletal: no cyanosis or clubbing, AROM x4, lumbar dressing CDI, ESTEBAN drain with serosang drainage Skin: no rashes, warm and dry normal turgor Neurologic: PERRL, EOMI, accommodation nl, no face palsy, no dysarthria CN's II-XI intact bilaterally and moves all extremities Psychiatric: A+Ox3, euthymic affect Lymphatic: no cervical or axillary lymphadenopathy : +stovall cath draining yellow urine Results & Data ([place]) Vital Signs (Past 12 Hours) Vital Signs Temp Pulse Resp BP Pulse Ox O2 Del Method O2 Flow Rate 03/10/22 16:40 Room Air 03/10/22 17:27 95 Nasal Cannula 2 03/10/22 17:23 36.7 C 72 16 110/70 92 Room Air 03/10/22 16:40 36.8 C 87 16 101/69 97 Room Air 03/10/22 16:15 36.7 C 75 18 109/73 96 Room Air 03/10/22 16:25 36.7 C 76 23 106/72 96 Room Air 03/10/22 16:05 36.7 C 77 13 107/64 99 Room Air 03/10/22 15:45 80 13 114/77 99 Room Air 03/10/22 15:55 77 17 97/60 L 98 Room Air 03/10/22 15:35 78 18 107/77 100 Room Air 03/10/22 15:25 81 20 99/61 L 95 Room Air 03/10/22 15:15 75 15 102/60 97 Room Air 03/10/22 14:55 69 13 101/78 99 Oxymask 3 03/10/22 15:05 79 17 115/65 97 Oxymask 3 03/10/22 14:45 72 21 112/64 100 Oxymask 4 03/10/22 14:38 36.3 C L 82 21 120/75 100 Oxymask 5 03/10/22 11:04 36.8 C 62 22 133/78 98 Room Air Laboratory Results Pre Op labs: 02/24/22 CBC: H&H 13.3 and 41.0, WBC 5.26, platelet 180 BMP: Sodium 139, K4.3, chloride 103, CO2 28, BUN 12, creatinine 0.70 Urinalysis negative SARS-CoV-2 negative CXR: IMPRESSION: No acute cardiopulmonary findings. Diagnostic Findings Lumbar Spine X-Ray 03/10/22 12:25 FL lumbar spine 2-3V CLINICAL HISTORY: L4-L5 DECOMPRESSION AND FUSION L5-S1 HW REMOVAL TECHNIQUE: 2 views were obtained with the C-arm in the OR with the above procedure. Total fluoroscopy time was 12.8 seconds. Total skin dose was 10.9 mGy. Comparison: None available at the time of this dictation. FINDINGS/IMPRESSION: Intraoperative images were obtained of L4-S1 discectomy and fusion and removal of L5-S1 hardware. Please correlate with intraoperative fluoroscopy and operative report. ACT 112: Negative or not required by law. Electronically signed by: Sam Agee M.D. 03/10/2022 2:52 PM Medications Administered Current Inpatient Medications Acetaminophen (Acetaminophen 500 Mg Tab) 1,000 mg PO Q8H PRN PRN Reason: MILD Pain Scale 1,2,3 & Pre PT Stop: 04/09/22 16:42 Al Hydrox/Mg Hydrox/Simethicone (Aluminum/Magnesium Susp 30 Ml Udc) 30 ml PO Q6H PRN PRN Reason: Dyspepsia Stop: 04/09/22 16:42 Atropine Sulfate (Atropine Sulfate 0.1 Mg/Ml 10ml Syr) 0.5 mg IV Q1M PRN PRN Reason: PACU Use-HR<40 &/or Bradycardi Stop: 03/10/22 20:03 Bisacodyl (Bisacodyl 10 Mg Supp) 10 mg LA DAILY PRN PRN Reason: Constipation Stop: 04/09/22 16:42 Diphenhydramine HCl (Diphenhydramine Capsule 25 Mg Cap) 25 mg PO Q6H PRN PRN Reason: Allergic Rhinitis/Insomnia Stop: 04/09/22 16:42 Ephedrine Sulfate (Ephedrine Sulfate 50 Mg/Ml Amp) 5 mg IV Q5M PRN PRN Reason: PACU Use Only-SBP<90 mmHg Stop: 03/10/22 20:03 Famotidine (Famotidine 20 Mg Tab) 20 mg PO Q12H PRN PRN Reason: Dyspepsia Stop: 04/09/22 16:42 Fentanyl Citrate (Fentanyl Citrate 100 Mcg/2 Ml Vial) 25 mcg IV Q5M PRN PRN Reason: PACU Use Only-Pain Stop: 03/10/22 20:03 Last Admin: 03/10/22 15:10 Dose: 25 mcg Ferrous Sulfate (Ferrous Sulfate 325 Mg Tab) 325 mg PO DAILY@1800 JONY Stop: 04/09/22 17:59 Gabapentin (Gabapentin 600 Mg Tab) 600 mg PO HS JONY Stop: 04/09/22 20:59 Hydromorphone HCl (Hydromorphone Inj 1 Mg/Ml Syringe) 0.25 mg IV Q5M PRN PRN Reason: PACU Use Only-Pain Stop: 03/10/22 23:08 Last Admin: 03/10/22 16:00 Dose: 0.25 mg Hydromorphone HCl (Hydromorphone Inj 0.5 Mg/0.5 Ml Syr) 0.5 mg IV Q3H PRN PRN Reason: MODERATE Pain (Scale 4,5,6) & Pre PT Stop: 03/24/22 16:42 Hydromorphone HCl (Hydromorphone Inj 1 Mg/Ml Syringe) 1 mg IV Q3H PRN PRN Reason: SEVERE Pain (Scale 7,8,9,10) Stop: 03/24/22 16:42 Hydroxyzine HCl (Hydroxyzine Hcl 25 Mg Tab) 25 mg PO Q8H PRN PRN Reason: Anxiety Stop: 04/09/22 16:42 Lactated Ringer's (Lr) 1,000 mls @ 100 mls/hr IV .Q10H JONY Stop: 04/09/22 16:42 Last Admin: 03/10/22 17:22 Dose: 100 mls/hr Promethazine HCl 12.5 mg/ (Sodium Chloride) 50.5 mls @ 202 mls/hr IV Q6H PRN PRN Reason: Nausea &/or Vomiting Stop: 04/09/22 16:42 Acetaminophen (Ofirmev) 1,000 mg in 100 mls @ 400 mls/hr IV Q8H PRN PRN Reason: Pain Rating 1-3 & Pre PT Stop: 03/11/22 16:44 Cefazolin Sodium (Ancef 1000mg) 1,000 mg in 7.5 mls @ 2.5 mls/min IV Q8H JONY; Protocol Stop: 03/11/22 04:32 Lorazepam 0.5 mg/ Syringe 0.5 mls @ 2 mls/min IV Q8H PRN PRN Reason: Sedation/Anxiety Stop: 04/09/22 16:42 Dexamethasone 6 mg/ Syringe 1.5 mls @ 1 mls/min IV DAILY JONY Stop: 03/13/22 09:02 Lorazepam (Lorazepam 0.5 Mg Tab) 0.5 mg PO Q8H PRN PRN Reason: Sedation/Anxiety Stop: 04/09/22 16:42 Magnesium Hydroxide (Magnesium Hydroxide Susp 30 Ml Udc) 30 ml PO Q24H PRN PRN Reason: Constipation Stop: 04/09/22 16:42 Metoclopramide HCl (Metoclopramide Hcl Inj 5 Mg/Ml 2 Ml Vial) 10 mg IV Q6H PRN PRN Reason: Nausea &/or Vomiting Stop: 04/09/22 16:42 Multivitamins (Multivitamin Tab) 1 tab PO QAM JONY Stop: 04/10/22 08:59 Naloxone HCl (Naloxone Hcl 0.4 Mg/1 Ml Vial/Carp) 0.1 mg IV Q5M PRN PRN Reason: Oversedation/Resp depression Stop: 04/09/22 16:42 Ondansetron HCl (Ondansetron Inj 2 Mg/Ml 2 Ml Vial) 4 mg IV ONCE PRN PRN Reason: PACU Use Only-Nausea/Vomiting Stop: 03/10/22 20:03 Ondansetron HCl (Ondansetron Inj 2 Mg/Ml 2 Ml Vial) 4 mg IV Q6H PRN PRN Reason: Nausea &/or Vomiting Stop: 04/09/22 16:42 Ondansetron HCl (Ondansetron 4 Mg Od Tab) 4 mg PO Q6H PRN PRN Reason: Nausea Stop: 04/09/22 16:42 Oxycodone HCl (Oxycodone Hcl Ir 5 Mg Tab (Immediate Release)) 5 - 10 mg PO Q4H PRN PRN Reason: Pain & Pre PT Stop: 03/24/22 16:42 Polyethylene Glycol (Polyethylene (Miralax) 17 Gm Pack) 17 gm PO Q6 [facility] Stop: 04/10/22 05:59 Senna/Docusate Sodium (Docusate Sodium/Senna 50/8.6mg Tab) 2 tab PO HS [facility] Stop: 04/09/22 20:59 Sertraline HCl (Sertraline Hcl 100 Mg Tablet) 100 mg PO HS [facility] Stop: 04/09/22 20:59 Sodium Biphosphate/Sodium Phosphate (Sod Phosphate/Sod Biphosphate Enema 132 Ml Btl) 132 ml LA ONE PRN PRN Reason: Constipation Stop: 04/09/22 16:42 Tramadol HCl (Tramadol Hcl 50 Mg Tablet) 50 - 100 mg PO Q4H PRN PRN Reason: Moderate-Severe pain & Pre PT Stop: 04/09/22 16:42 ECG Rate (beats per minute): 60 Rhythm: normal sinus Additional Comments: T wave abn in anterior leads
[2022-03-10] MEDS: FERROUS SULFATE 325 MG TAB PO SCH (18:29)
[2022-03-10] MEDS: DOCUSATE SODIUM/SENNA 50/8.6MG TAB PO SCH (20:52)
[2022-03-10] MEDS: SERTRALINE HCL 100 MG TABLET PO SCH (20:52)
[2022-03-10] MEDS: GABAPENTIN 600 MG TAB PO SCH (20:52)
[2022-03-11] MEDS: HYDROmorphone INJ 1 MG/ML SYRINGE IV PRN (02:03)
[2022-03-11] MEDS: LACTATED RINGER'S 1,000 ML IV SCH (04:10)
[2022-03-11] MEDS: ceFAZolin 1000MG 1,000 MG/7.5 ML SYR IV SCH (04:40)
[2022-03-11] MEDS: POLYETHYLENE (MIRALAX) 17 GM PACK PO SCH ×4 (05:41→22:55)
[2022-03-11 06:54] LABS: BUN Creatinine Ratio 17.1 (10-20); Calcium 9.1 mg/dl (8.5-10.1); Creatinine Clr Calc Pharmacy 88.4 ml/min; Est GFR (African American) 110.7 ml/min; Est GFR (Non-African American) 95.5 ml/min; Hematocrit (blood only) 35.7 % (34.1-44.9); Hemoglobin 11.6 g/dl (12.0-16.0); Mean Corpuscular Hemoglobin 26.5 pg (25.0-34.0); Mean Corpuscular Hgb Conc 32.5 g/dL (32.0-36.0); Mean Corpuscular Volume 81.7 fL (80.0-100.0); Platelet Count 133 K/uL (130-400); Potassium 4.6 mmol/L (3.5-5.1); RDW Coefficient of Variation 18.1 % (11.5-14.5); RDW Standard Deviation 53.9 fL (36.4-46.3); Red Blood Count 4.37 M/uL (3.93-5.22); White Blood Count 7.73 K/ul (4.8-10.8)
[2022-03-11 06:55] LABS: Basophils # (auto) 0.03 K/uL (0-0.2); Basophils % (auto) 0.4 %; Eosinophils # (auto) 0.01 K/uL (0-0.50); Eosinophils % (auto) 0.1 %; Immature Granulocytes # (auto) 0.02 K/uL (0.00-0.02); Immature Granulocytes % (auto) 0.3 %; Lymphocytes # (auto) 0.94 K/uL (1.2-3.4); Lymphocytes % (auto) 12.2 %; Monocytes # (auto) 0.69 K/uL (0.24-0.82); Monocytes % (auto) 8.9 %; Neutrophils # (auto) 6.04 K/uL (1.4-6.5); Neutrophils % (auto) 78.1 %; Ovalocytes 1+
--- NOTE | 2022-03-11 08:18 | Orthopedic Progress Note ---
Date of Service March 11, 2022 Assessment & Plan (1) Lumbar stenosis with neurogenic claudication: Plan: This time initiate physical therapy and monitor ESTEBAN operatively discharge home next day or so. Admission and Anticipated Discharge Date Admission Date: March 10, 2022 Subjective Patient's back pain is controlled leg symptoms markedly improved Physical Exam Physical Exam: Patient is comfortable. Is excellent strength testing. Results & Data ([facility]) Vital Signs (Past 12 Hours) Vital Signs Temp Pulse Resp BP Pulse Ox O2 Del Method 03/11/22 08:11 36.7 C 64 14 100/65 97 Room Air 03/11/22 05:37 36.5 C 56 L 14 101/64 94 Room Air 03/11/22 02:00 36.4 C L 62 14 102/64 97 Room Air 03/10/22 22:22 36.4 C L 65 16 107/68 100 Room Air
[2022-03-11] MEDS ORDERED: NON-FORMULARY MEDICATION (Magnesium 500 mg Tablet) PO SCH (09:00)
[2022-03-11] MEDS: MULTIVITAMIN TAB PO SCH (10:12)
[2022-03-11] MEDS: dexAMETHasone 6 MG in SYRINGE 0 ML IV SCH (10:12)
--- NOTE | 2022-03-11 15:57 | Hospitalist Progress Note ---
Date of Service March 11, 2022 Assessment & Plan (1) Lumbar stenosis with neurogenic claudication: Plan: S/P L4-L5 Decompression/Fusion with removal of hardware L5-S1, POD # 1 by EBL 100ml; tolerated procedure well pain/wound management per ortho activity and therapy as directed by ortho encourage incentive spirometry, Pre op Hb- 13.3, Post op 11.6. Continue to monitor. Depression with anxiety continue zoloft mood stable Hx of medical marijuana use uses edibles Migraine hx continue mag supplement no current ALCARAZ DVT ppx: SCDS per primary FULL CODE PCP: Dr. Leticia Montez MD, [place], part of [facility] [place] Dispo: per primary Thank you for this consultation. We will follow the patient with you during their hospital stay. You can reach a member of the [facility] Hospitalist Team 17/01 via hospitalist role on tiger text. Admission and Anticipated Discharge Date Admission Date: March 10, 2022 Subjective Patient seen and examined at bedside. She is comfortable; not in any distress. Pain is well controlled on current medication. She has not had bowel movement yet. Stovall was taken out today. Review of Systems Review of Systems: All systems reviewed & are unremarkable except as noted in Subjective Physical Exam Physical Exam: Constitutional: WD/WN, vitals as above, NAD, sitting up in bed, pleasant, conversing easily Head: Normocephalic, Atraumatic Respiratory: normal respiratory effort, lungs clear to auscultation, no wheeze, rales, rhonchi. Normal insp/exp effort, no accessory muscle use Cardiovascular: RRR, no murmur, no edema Vessels: no JVD or carotid bruit Chest: normal inspection of chest Abdomen: normal bowel sounds, soft, nontender, no hepatosplenomegaly Musculoskeletal: no cyanosis or clubbing, AROM x4, lumbar dressing CDI, ESTEBAN drain with serosang drainage Skin: no rashes, warm and dry normal turgor Neurologic: PERRL, EOMI, accommodation nl, no face palsy, no dysarthria CN's II-XI intact bilaterally and moves all extremities Psychiatric: A+Ox3, euthymic affect Lymphatic: no cervical or axillary lymphadenopathy : +stovall cath draining yellow urine Results & Data Results & Data ([facility]) Vital Signs (Past 12 Hours) Vital Signs Temp Pulse Resp BP BP Pulse Ox O2 Del Method 03/11/22 14:48 36.7 C 59 L 16 103/57 L 98 Room Air 03/11/22 11:00 36.5 C 62 15 122/77 99 Room Air 03/11/22 08:11 36.7 C 64 14 100/65 97 Room Air 03/11/22 05:37 36.5 C 56 L 14 101/64 94 Room Air Laboratory Results Laboratory Results WBC 7.73 K/ul (4.8-10.8) 03/11/22 05:51 RBC 4.37 M/uL (3.93-5.22) 03/11/22 05:51 Hgb 11.6 g/dl (12.0-16.0) L 03/11/22 05:51 Hct 35.7 % (34.1-44.9) 03/11/22 05:51 MCV 81.7 fL (80.0-100.0) 03/11/22 05:51 MCH 26.5 pg (25.0-34.0) 03/11/22 05:51 MCHC 32.5 g/dL (32.0-36.0) 03/11/22 05:51 RDW Std Deviation 53.9 fL (36.4-46.3) H 03/11/22 05:51 RDW Coeff of Keira 18.1 % (11.5-14.5) H 03/11/22 05:51 Plt Count 133 K/uL (130-400) 03/11/22 05:51 Immature Gran % (Auto) 0.3 % 03/11/22 05:51 Neut % (Auto) 78.1 % 03/11/22 05:51 Lymph % (Auto) 12.2 % 03/11/22 05:51 Caswell % (Auto) 8.9 % 03/11/22 05:51 Eos % (Auto) 0.1 % 03/11/22 05:51 Baso % (Auto) 0.4 % 03/11/22 05:51 Neut # (Auto) 6.04 K/uL (1.4-6.5) 03/11/22 05:51 Lymph # (Auto) 0.94 K/uL (1.2-3.4) L 03/11/22 05:51 Caswell # (Auto) 0.69 K/uL (0.24-0.82) 03/11/22 05:51 Eos # (Auto) 0.01 K/uL (0-0.50) 03/11/22 05:51 Baso # (Auto) 0.03 K/uL (0-0.2) 03/11/22 05:51 Immature Gran # (Auto) 0.02 K/uL (0.00-0.02) 03/11/22 05:51 Ovalocytes 1+ 03/11/22 05:51 Sodium 139 mmol/L (136-145) 03/11/22 05:51 Potassium 4.6 mmol/L (3.5-5.1) 03/11/22 05:51 Chloride 104 mmol/L (98-107) 03/11/22 05:51 Carbon Dioxide 30 mmol/L (21-32) 03/11/22 05:51 Anion Gap 5 (3-11) 03/11/22 05:51 BUN 12 mg/dl (6-23) 03/11/22 05:51 Creatinine 0.70 mg/dl (0.6-1.2) 03/11/22 05:51 Est Cr Clr Drug Dosing 88.4 ml/min 03/11/22 05:51 Est GFR ( Amer) 110.7 ml/min 03/11/22 05:51 Est GFR (Non-Af Amer) 95.5 ml/min 03/11/22 05:51 BUN/Creatinine Ratio 17.1 (10-20) 03/11/22 05:51 Glucose 144 mg/dl (70-99(Fasting)) H 03/11/22 05:51 Calcium 9.1 mg/dl (8.5-10.1) 03/11/22 05:51 SARS-CoV-2, RNA, NAAT NEGATIVE (NEGATIVE) 03/10/22 10:54 Blood Type O Positive 03/10/22 11:04 Antibody Screen NEGATIVE 03/10/22 11:04 Impressions Lumbar Spine X-Ray 03/10/22 12:25 FL lumbar spine 2-3V CLINICAL HISTORY: L4-L5 DECOMPRESSION AND FUSION L5-S1 HW REMOVAL TECHNIQUE: 2 views were obtained with the C-arm in the OR with the above procedure. Total fluoroscopy time was 12.8 seconds. Total skin dose was 10.9 mGy. Comparison: None available at the time of this dictation. FINDINGS/IMPRESSION: Intraoperative images were obtained of L4-S1 discectomy and fusion and removal of L5-S1 hardware. Please correlate with intraoperative fluoroscopy and operative report. ACT 112: Negative or not required by law. Electronically signed by: Sam Agee M.D. 03/10/2022 2:52 PM
[2022-03-11] MEDS: FERROUS SULFATE 325 MG TAB PO SCH (17:31)
[2022-03-11] MEDS: DOCUSATE SODIUM/SENNA 50/8.6MG TAB PO SCH (19:53)
[2022-03-11] MEDS: SERTRALINE HCL 100 MG TABLET PO SCH (19:54)
[2022-03-11] MEDS: GABAPENTIN 600 MG TAB PO SCH (19:54)
[2022-03-12] MEDS: POLYETHYLENE (MIRALAX) 17 GM PACK PO SCH (05:44)
[2022-03-12] MEDS: dexAMETHasone 6 MG in SYRINGE 0 ML IV SCH (08:01)
[2022-03-12] MEDS: MULTIVITAMIN TAB PO SCH (08:01)
--- NOTE | 2022-03-12 11:48 | Discharge Summary ---
Date of Service March 12, 2022 Admission HPI Per Admitting Provider This is a 52-year-old female well-known to me the presents with chronic chest and back and leg pain after failing course of nonoperative care she is here for surgical invention. Principal Diagnosis Lumbar spinal stenosis Discharge Data Allergies Allergy/AdvReac Type Severity Reaction Status Date / Time bee venom protein (honey bee) Allergy Severe ANAPHYLAXIS Verified 03/10/22 11:02 No Known Drug Allergies Allergy Unknown NKDA Verified 03/10/22 11:02 Consultations 03/10/22 16:43 Consult Hospitalist Routine Procedures Performed Operation Date: 03/10/22 12:25 Actual Procedures p L4-L5 Decompression and Fusion, Spinal Cord Monitoring - Tony Oliver DO s L5-S1 Hardware Removal, - Tony Oliver DO Ordered Studies 03/10/22 12:25 FL lumbar spine 2-3V Routine Hospital Course (1) Lumbar stenosis with neurogenic claudication: Patient with lumbar decompression fusion tolerated this well was taken to orthopedic floor postoperatively postop day 1 she was up and angling progressed to postop day 2. ESTEBAN drain decreasing appropriate. Excellent strength testing. Subsequent discharge home. Discharge orders and instructions from the chart for further review. Total Time Total Time Spent Total Time Spent (In Minutes): 20 minutes Discharge Plan Discharge Items Patient Disposition: Home - Self-Care Reason For Visit: POST OP Discharge Diagnosis: Lumbar spinal stenosis with neurogenic claudication Activity: As commented below Non-emergency contact: Primary Care Provider Call non-emergency contact if: you have any medication questions Follow-up/Referrals: PCP,NO [Physician] - Diet: Regular Addtl Attending Provider Instructions: ACTIVITY RECOMMENDATIONS: SELF CARE INSTRUCTIONS AFTER THORACIC/LUMBAR FUSIONS 1. You may walk to your tolerance. It is good exercise for your legs and back. Expect some back and intermittent leg aches and pains. 2. You may perform "counter-top" level activities (make a sandwich, lesly with a project, etc.). 3. No bending or lifting of more than 10 pounds or back twisting of any nature (roll like a log when turning in bed). 4. You may ride in a car for 20-30 minutes at a time. No driving until after your first visit with your doctor. 5. Frequent changes of position and restricting sitting to 30 minutes at a time will help limit the amount of back spasms and stiffness you may experience. 6. You may discontinue the use of ambulatory aids (cane, crutches, etc.) once your strength and confidence allow. 7. You may blueprint blocker the shower and let water strike your incision when you arrive home at least once daily. Do not take a tub bath, sit in a hot tub or go into a swimming pool until after your first recheck in the office. SPECIAL CARE INSTRUCTIONS: VERY IMPORTANT TO READ AND REVIEW A. Your surgical incision has been closed with a cosmetic suture under the skin that will dissolve in about 6 weeks. In 14 days, you can use a pair of clean scissors and cut the suture that is left outside of the skin at the ends of your incision. 1. The small skin tapes can be removed 7 days after surgery if they have not fallen off by that point. 2. You may keep the wound open to air as much as possible to promote healing after post-op day number 5 unless told otherwise by your doctor. 3. If you think the wound looks like it is becoming infected (redness or worsening drainage) and/or you are experiencing fever, chill or worsening back pain and muscle spasms, contact the office so that we may evaluate you as soon as possible. B. Complications are uncommon, but please contact us if you have any signs or symptoms of: 1. wound infection (fever higher than 102.5 degrees F, redness, separation of wound, drainage, or increasing pain from the incision) 2. blood clots in legs (pain, swelling, redness and warmth in legs) 3. urinary tract infection (fever higher than 102.5 degrees F, burning upon urination or increased frequency of urination) 4. nerve problems (inability to walk on your toes or heels, numbness, loss of bowel or bladder control) 5. any other symptoms that concern you C. Please call the office at if you have any concerns or questions about your operation or recovery. D. No smoking! Smoking drastically decreases the chance of a solid fusion. E. Do not take any anti-inflammatory medications (Indocin, Advil, Motrin, Aspirin, Naprosyn, etc.) as these may inhibit the chance of a solid fusion. Tylenol is okay to take for pain. MANAGING PAIN AFTER SPINAL SURGERY 1. Narcotic medication is intended for short-term use and will be provided for surgical pain. Surgical pain usually lasts for a period of 4-6 weeks. Narcotic medication includes Percocet, Vicodin, Darvocet, Tylenol #3 or Lortab. 2. Longer-term pain is more appropriately treated with non-narcotic medication such as Tylenol ES. 3. Muscle spasm is not appropriately treated with narcotics. Muscle relaxers such as Soma, Flexeril or Skelaxin can be used along with Tylenol ES. 4. Remember that we all live with some "aches and pains". This is not unusual or uncommon after an injury or as we get older. a. Back pain is expected and may include muscle spasms for 4 to 6 weeks after surgery. The pain should gradually improve. If the pain worsens for no apparent reason, please contact the office. b. Intermittent leg pain may also be experienced and should not be concerned about unless it worsens for no apparent reason. If so, please contact the office. 5. We will provide appropriate medication within the normal guidelines of their prescribed use. We will also be very cautious and aware of potential abuse and extended duration of patients' medication needs. a. Pain medications are for your comfort and to assist with sleep and rest so that the tissue can heal. They are not provided in order to return to normal activity and should not be used through the day. To do so or worsening pain at night can result from ongoing tissue damage and development of tolerance to the prescribed medicine. 6. Please allow 2-3 days to process refills. Prescriptions will not be mailed but must be picked up at the office. FOLLOW UP VISIT: Keep your scheduled follow-up appointment. Any questions, please call the office at . Pending Studies at Discharge: No Stand-Alone Forms: [facility], Smoking Cessation Medications and DC Order Prescriptions: New tramadol 50 mg tablet 50 mg PO Q6H PRN (Reason: pain, moderate) Qty: 30 0RF oxycodone 5 mg tablet 5 mg PO Q6H PRN (Reason: pain, severe) Qty: 30 0RF Continued multivitamin Tablet 1 tab PO QAM magnesium 500 mg Tablet 15 mg PO QAM sertraline [Zoloft] 100 mg Tablet 100 mg PO HS ferrous sulfate 325 mg (65 mg iron) Tablet 325 mg PO QPM Rx Instructions: takes after evening meal gabapentin 300 mg Tablet 600 mg PO HS Discharge Orders: Discharge Order (Routine); Ordered 03/12/22 Ordered By: Tony Oliver Admission Data Admit Date/Time: 03/10/22 14:28 Attending Provider: Tony Oliver Admit Provider: Tony Oliver Primary Care Provider: Leticia Montez Other Providers: Elvira Newton ; Albino Rosas
--- NOTE | 2022-03-12 18:08 | Hospitalist Progress Note ---
Date of Service March 12, 2022 Assessment & Plan (1) Lumbar stenosis with neurogenic claudication: Plan: S/P L4-L5 Decompression/Fusion with removal of hardware L5-S1, POD # 2 by EBL 100ml; tolerated procedure well pain/wound management per ortho activity and therapy as directed by ortho encourage incentive spirometry, Pre op Hb- 13.3, Post op 11.6. Depression with anxiety continue zoloft mood stable Hx of medical marijuana use uses edibles Migraine hx continue mag supplement no current ALCARAZ DVT ppx: SCDS per primary FULL CODE PCP: Dr. Leticia Montez MD, [place], [facility] [place] Dispo: per primary Thank you for this consultation. Admission and Anticipated Discharge Date Admission Date: March 10, 2022 Subjective Patient seen and examined at bedside. Comfortable; not in any distress. Passed bowel movement. Drain taken out today. Review of Systems Review of Systems: All systems reviewed & are unremarkable except as noted in Subjective Physical Exam Physical Exam: Constitutional: WD/WN, vitals as above, NAD, sitting up in bed, pleasant, conversing easily Head: Normocephalic, Atraumatic Respiratory: normal respiratory effort, lungs clear to auscultation, no wheeze, rales, rhonchi. Normal insp/exp effort, no accessory muscle use Cardiovascular: RRR, no murmur, no edema Vessels: no JVD or carotid bruit Chest: normal inspection of chest Abdomen: normal bowel sounds, soft, nontender, no hepatosplenomegaly Musculoskeletal: no cyanosis or clubbing, AROM x4, lumbar dressing CDI, Skin: no rashes, warm and dry normal turgor Neurologic: PERRL, EOMI, accommodation nl, no face palsy, no dysarthria CN's II-XI intact bilaterally and moves all extremities Psychiatric: A+Ox3, euthymic affect : deferred Results & Data Results & Data ([facility]) Vital Signs (Past 12 Hours) Vital Signs Temp Pulse Pulse Resp BP BP Pulse Ox 03/12/22 12:05 36.8 C 71 60 12 117/73 101/65 93 03/12/22 07:20 36.8 C 60 12 101/65 93 O2 Del Method 03/12/22 12:05 03/12/22 07:20 Room Air
== END 2022-03-12 13:32 | disposition home or self-care (01) | DRG 455 ==
LOC: ASU 10:45 → 3E 14:28